=== PATIENT | female | born 1990 | race Caucasian/White ===

== ENCOUNTER 2018-10-26 07:49 | Emergency (ER) | payer OTHER ==
[2018-10-26 07:58] VITALS: BP 100/64; PULSE 89; RESP 20; TEMP 99.2
[2018-10-26] MEDS ORDERED: IBUPROFEN 600 MG TAB PO STA (08:15)
[2018-10-26] MEDS ORDERED: ACETAMINOPHEN TAB 500 MG TAB PO STA (08:15)
--- NOTE | 2018-10-26 08:25 | ED ---
General Adult HPI - General Chief complaint: Upper Respiratory Infection Stated complaint: fever, body aches Time Seen by Provider: 10/26/18 07:50 Source: patient, RN notes reviewed Mode of arrival: ambulatory Limitations: no limitations - History of Present Illness Initial comments: This is a 28-year-old female presents emergency Department with a high fever body aches. Patient states her younger child was diagnosed with influenza A on Thursday. Patient states she has the same symptoms of trauma. Patient states she has a cough but no sputum production. Patient denies any shortness of breath or difficulty breathing. Patient denies any chest pain. Patient denies palpitations. Patient denies lightheadedness dizziness or syncopal episode. Patient denies abdominal pain patient denies nausea vomiting diarrhea. - Related Data Previous Rx's Medication Instructions Recorded Oseltamivir [Tamiflu] 75 mg PO Q12HR #10 cap 10/26/18 Allergies Allergy/AdvReac Type Severity Reaction Status Date / Time No Known Allergies Allergy Verified 10/26/18 08:13 Review of Systems ROS Statement: Those systems with pertinent positive or pertinent negative responses have been documented in the HPI. ROS Other: All systems not noted in ROS Statement are negative. Past Medical History Past Medical History: No Reported History History of Any Multi-Drug Resistant Organisms: None Reported Past Surgical History: Section Past Anesthesia/Blood Transfusion Reactions: No Reported Reaction Past Psychological History: No Psychological Hx Reported Smoking Status: Current every day smoker Past Alcohol Use History: Occasional Past Drug Use History: None Reported General Exam - General Exam Comments Initial Comments: GENERAL: Patient is well-developed and well-nourished. Patient is nontoxic and well- hydrated and is in mild distress. ENT: Neck is soft and supple. No significant lymphadenopathy is noted. Oropharynx is clear. Moist mucous membranes. Neck has full range of motion without eliciting any pain. EYES: The sclera were anicteric and conjunctiva were pink and moist. Extraocular movements were intact and pupils were equal round and reactive to light. Eyelids were unremarkable. PULMONARY: Unlabored respirations. Good breath sounds bilaterally. No audible rales rhonchi or wheezing was noted. CARDIOVASCULAR: There is a regular rate and rhythm without any murmurs gallops or rubs. ABDOMEN: Soft and nontender with normal bowel sounds. SKIN: Skin is clear with no lesions or rashes and otherwise unremarkable. NEUROLOGIC: Patient is alert and oriented x3. Cranial nerves II through XII are grossly intact. Motor and sensory are also intact. Normal speech, volume and content. Symmetrical smile. MUSCULOSKELETAL: Normal extremities with adequate strength and full range of motion. LYMPHATICS: No significant lymphadenopathy is noted PSYCHIATRIC: Normal psychiatric evaluation. Limitations: no limitations Course Vital Signs 10/26/18 07:51 Temperature 99.2 F Pulse Rate 89 Respiratory 20 Rate Blood Pressure 100/64 O2 Sat by Pulse 96 Oximetry Medical Decision Making - Medical Decision Making Patient had influenza a and will be sent home with a Tamiflu prescription. - Lab Data Lab Results 10/26/18 Range/Units 08:15 Influenza Type A RNA Detected H (Not Detectd) Influenza Type B (PCR) Not Detected (Not Detectd) Disposition Clinical Impression: Influenza A Disposition: HOME SELF-CARE Prescriptions: Oseltamivir [Tamiflu] 75 mg PO Q12HR #10 cap Is patient prescribed a controlled substance at d/c from ED?: No Referrals: Camilla Kapadia MD [Primary Care Provider] - 1-2 days Time of Disposition: 08:49
== END 2018-10-26 08:52 | disposition home or self-care (01) ==
LOC: EC 07:49
DX: J10.1 Influenza due to other identified influenza virus with other respiratory manifestations (principal); F17.200 Nicotine dependence, unspecified, uncomplicated
CPT/HCPCS: 87502; 99283

== ENCOUNTER → 2021-11-11 | Outpatient (CLI) | payer OTHER ==
[2021-11-11 14:44] LABS: HCT 42.9 % (37.2-46.3); HGB 13.7 g/dL (12.0-15.0); MCH 29.5 pg (27.0-32.0); MCHC 31.9 g/dL (32.0-37.0); MCV 92.5 fL (80.0-97.0); Mean Platelet Volume 10.1 fL (9.5-12.2); NRBC Per 100 WBC 0 /100 WBCS (0.0-0.0); Platelet Count 251 X 10*3/uL (140-440); RBC 4.64 X 10*6/uL (4.10-5.20); T4, Free (Free Thyroxine) 1.47 ng/dL (0.800-1.800); WBC 6.65 X 10*3/uL (4.50-10.00)
--- NOTE | 2021-11-13 13:38 | MM ---
Reason for exam: clinical finding. Last mammogram was performed 5 years and 11 months ago. History: Family history of breast cancer in maternal cousin at age 30. Taking hormonal contraceptives beginning at age 26. Physical Findings: A clinical breast exam by your physician is recommended on an annual basis and results should be correlated with mammographic findings. MG Diagnostic Mammo w CAD TOVA Bilateral CC and MLO view(s) were taken. Prior study comparison: December 23, 2015, mammogram, performed at [facility]. There are scattered fibroglandular densities. Stable superficial calcifications 7 o'clock left breast is unchanged. Large circumscribed 4-8cm mass left upper outer quadrant is new. ASSESSMENT: Incomplete: need additional imaging evaluation, BI-RAD 0 RECOMMENDATION: Ultrasound of the left breast.
--- NOTE | 2021-11-13 13:41 | USB ---
Reason for exam: additional evaluation requested from abnormal screening. History: Family history of breast cancer in maternal cousin at age 30. Taking hormonal contraceptives beginning at age 26. Physical Findings: A clinical breast exam by your physician is recommended on an annual basis and results should be correlated with mammographic findings. US Breast Limited LT Left limited breast ultrasound including focal area of concern, retroareolar and axilla demonstrates a 4.0 x 2.2 x 4.0cm mildly lobulated, circumscribed, hypoechoic, solid mass with vascularity at 3 o'clock, fibroadenoma versus other mass, biopsy recommended. No axillary nodes. Scanned 12-3 o'clock. ASSESSMENT: Suspicious, BI-RAD 4 RECOMMENDATION: Ultrasound core biopsy of the left breast. Called Dr. Kapadia's office with mammographic findings and has scheduled an appointment for the patient for 11/27/21 at 9:[address] Dixon. Biopsy scheduled for 11/20/21 at 10:30. PRELIMINARY REPORT CALLED AND FAXED TO DR. DIXON ON 11/11/21.
== END | disposition home or self-care (01) ==
LOC: RADMAMWWP 08:49
PROVIDERS: ATTEND Internal Medicine
DX: N63.0 Unspecified lump in unspecified breast (principal); R53.83 Other fatigue; E66.3 Overweight; Z80.3 Family history of malignant neoplasm of breast
CPT/HCPCS: 36415; 77066; 82947; 84439; 84443; 84481; 85027

== ENCOUNTER → 2021-11-20 | Day surgery (SDC) | payer OTHER ==
[2021-11-20 09:51] VITALS: RESP 12
[2021-11-20 11:13] VITALS: BP 122/79; PULSE 86; TEMP 98.4
--- NOTE | 2021-11-20 14:46 | USB ---
EXAMINATION TYPE: US biopsy breast VAD LT DATE OF EXAM: 11/20/2021 CLINICAL HISTORY: R92.8 ABN MAMMO. Abnormal ultrasound. TECHNIQUE: Ultrasound guided core biopsy of left breast with clip placement. COMPARISON: Prior left breast ultrasound November 11, 2021 FINDINGS: The procedure of ultrasound guided core biopsy was explained to the patient. Benefits, alternatives, and risks were discussed. An informed consent was then obtained. The patient was placed in supine positioning for imaging and for the procedure. Preprocedure ultrasound redemonstrates a large oval wider greater than tall heterogeneous hypoechoic solid mass at 3:00 position left breast with some internal vascularity. The overlying skin was prepped and draped in usual sterile fashion. Lidocaine is used as anesthetic into the skin and subcutaneous tissue up to area of concern in the left breast. Under ultrasound guidance, a vacuum assisted biopsy gun device was used to obtain 2 core samples. Following this, a biopsy clip was left in lesion. Postprocedure mammogram was deferred due to patient age and good visualization of clip within the lesion after deployment on ultrasound. I was unaware patient had mammogram November 11. The patient tolerated the procedure well without any immediate complication. The patient was kept in the radiology department for short stay after the procedure and then discharged home in stable condition. IMPRESSION: Successful, uncomplicated ultrasound guided core biopsy of area of concern in the left breast, full pathology results to follow. Low index of suspicion noted at time of procedure. Large fibroadenoma suspected. If pathology reveals diagnosis requiring chemotherapy or immunotherapy treatment prior to surgery I would advise diagnostic mammogram prior to initiating treatment to document clip placement on mammogram along with ultrasound. 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 Recommendation Follow up mammogram of the left breast in 6 months. NARESHD
== END ==
LOC: RADUSWWP 09:22
PROVIDERS: ATTEND Student in an Organized Health Care Education/Training Program
DX: N60.32 Fibrosclerosis of left breast (principal)
CPT/HCPCS: 19083; 88305; A4648

== ENCOUNTER → 2022-06-09 | Outpatient (CLI) | payer OTHER ==
--- NOTE | 2022-06-09 15:13 | MM ---
Reason for Exam: Follow-up at short interval from prior study. Last screening mammogram was performed 7 month(s) ago. Indicated Problems: Pain of the left side (Focal) for 7 Month(s) : lt breast pain at bx site x 7 months. Patient History: Menarche at age 9. First Full-Term at age 16. Currently using Hormonal Contraceptives, starting at age 26. 11/20/2021, Benign Core Biopsy on the left side. Maternal cousin had breast cancer, age 30. Prior Study Comparison: 12/23/2015 Screening Mammogram, [facility]. 11/11/2021 Bilateral Diagnostic Mammogram, [facility]. Tissue Density: Left: There are scattered fibroglandular densities. Findings: Analyzed By CAD. Increased size of large circumscribed 7.4 x 5.1 cm mass in upper outer quadrant of the left breast with biopsy clip demonstrated, previously measured 4.8 cm. This is at the patient's site of pain. No new worrisome cluster microcalcifications. Overall Assessment: Incomplete: need additional imaging evaluation, BI-RAD 0 Management: Diagnostic Breast Ultrasound of the left breast. A clinical breast exam by your physician is recommended on an annual basis and results should be correlated with mammographic findings. This exam should not preclude additional follow-up of suspicious palpable abnormalities. Results were given to the patient verbally at the time of exam. Electronically signed and approved by: Ronny Peralta D.O.
--- NOTE | 2022-06-09 15:36 | USB ---
Reason for Exam: Follow-up at short interval from prior study. Patient History: Menarche at age 9. First Full-Term at age 16. Currently using Hormonal Contraceptives, starting at age 26. 11/20/2021, Benign Core Biopsy on the left side. Maternal cousin had breast cancer, age 30. Technique: Method: Targeted. Prior Study Comparison: 12/23/2015 Screening Mammogram, [facility]. 11/11/2021 Bilateral Diagnostic Mammogram, [facility]. Findings: The lower outer quadrant of the left breast, the axilla of the left breast and the retroareolar of the left breast were scanned. Limited ultrasound of the left breast the patient's region of palpable abnormality from 2:00 to 4:00 was obtained. Additional imaging of the left nipple and extra toe was obtained. Increase in size with similar morphology of large left breast mass at 3:00 8 cm from the nipple measuring grossly 6.4 x 3.2 x 6.0 cm. No internal color flow visualized. This has been previous the biopsied with pathology results demonstrated fibrocystic changes including stromal fibrosis and pseudoangiomatous hyperplasia. Overall Assessment: Benign, BI-RAD 2 Management: Surgical Consultation of the left breast. A clinical breast exam by your physician is recommended on an annual basis and results should be correlated with mammographic findings. This exam should not preclude additional follow-up of suspicious palpable abnormalities. ??Results were given to the patient verbally at the time of exam. Electronically signed and approved by: Ronny Peralta D.O.
== END | disposition home or self-care (01) ==
LOC: RADMAMWWP 14:20
PROVIDERS: ATTEND Internal Medicine
DX: R92.8 Other abnormal and inconclusive findings on diagnostic imaging of breast (principal); Z80.3 Family history of malignant neoplasm of breast
CPT/HCPCS: 77065

== ENCOUNTER → 2023-02-12 | Outpatient (CLI) | payer OTHER ==
--- NOTE | 2023-02-12 14:50 | MM ---
Reason for Exam: Clinical finding. Last mammogram was performed 1 year(s) and 3 month(s) ago. Indicated Problems: Lump or thickening of the left side (size 3) for 6 Week(s). Patient History: Menarche at age 9. First Full-Term at age 16. Patient has history of breast feeding. Currently using Hormonal Contraceptives, starting at age 26. 06/26/2022, Benign Excisional Biopsy on the left side. 11/20/2021, Benign Core Biopsy on the left side. Maternal cousin had breast cancer, age 30. Last menstrual period: 02/05/2023 Prior Study Comparison: 12/23/2015 Screening Mammogram, [facility]. 11/11/2021 Bilateral Diagnostic Mammogram, [facility]. 06/09/2022 Left MG diagnostic mammo LT w CAD, [facility]. Tissue Density: The breast tissue is heterogeneously dense. This may lower the sensitivity of mammography. Findings: Analyzed By CAD. Interval excision of the patient's previous large upper outer quadrant mass. Asymmetric density medial posterior right breast remains unchanged. New 5 mm isodense circumscribed nodularity at the 1:00 position left breast that. Overlying palpable marker. Further ultrasound evaluation recommended. Otherwise, no significant change. Overall Assessment: Incomplete: need additional imaging evaluation, BI-RAD 0 Management: Diagnostic Breast Ultrasound of the left breast. Electronically signed and approved by: Erik Qureshi M.D. Radiologist
--- NOTE | 2023-02-12 15:26 | USB ---
Reason for Exam: Clinical finding. Patient History: Menarche at age 9. First Full-Term at age 16. Patient has history of breast feeding. Currently using Hormonal Contraceptives, starting at age 26. 06/26/2022, Benign Excisional Biopsy on the left side. 11/20/2021, Benign Core Biopsy on the left side. Maternal cousin had breast cancer, age 30. Technique: Method: Targeted. Prior Study Comparison: 12/23/2015 Screening Mammogram, [facility]. 11/11/2021 Bilateral Diagnostic Mammogram, [facility]. 06/09/2022 Left MG diagnostic mammo LT w CAD, [facility]. 06/09/2022 Left US breast limited LT, [facility]. Findings: The area of palpable concern of the left breast, the axilla of the left breast and the retroareolar of the left breast were scanned. Targeted ultrasound to the patient's palpable site 11:00. Additional scanning of the subareolar region and axilla. At 11:00, 5 cm from the nipple, there is a tiny benign 5 mm cyst, probable mammographic correlate. Precautionary six-month follow-up mammogram recommended. Overall Assessment: Probably benign, BI-RAD 3 Management: Diagnostic Mammogram of the left breast in 6 months. Further clinical management of any suspicious palpable abnormalities. Ultrasound shows a probable tiny 5 mm cyst corresponding to the patient's palpable site. Patient should continue monthly self breast exams. Results were given to the patient verbally at the time of exam. Electronically signed and approved by: Erik Qureshi M.D. Radiologist
== END | disposition home or self-care (01) ==
LOC: RADMAMWWP 14:05
PROVIDERS: ATTEND Internal Medicine
DX: N63.21 Unspecified lump in the left breast, upper outer quadrant (principal); Z80.3 Family history of malignant neoplasm of breast
CPT/HCPCS: 77066; 76642; G0279; 77062

== ENCOUNTER → 2023-08-14 | Outpatient (CLI) | payer OTHER ==
--- NOTE | 2023-08-14 11:46 | USB ---
Reason for Exam: Follow-up at short interval from prior study. Patient History: Menarche at age 9. First Full-Term at age 16. Patient has history of breast feeding. Currently using Hormonal Contraceptives, starting at age 26. 06/26/2022, Benign Excisional Biopsy on the left side. 11/20/2021, Benign Core Biopsy on the left side. Maternal cousin had breast cancer, age 30. Technique: Method: Targeted. Prior Study Comparison: 11/11/2021 Bilateral Diagnostic Mammogram, [facility]. 06/09/2022 Left MG diagnostic mammo LT w CAD, [facility]. 02/12/2023 Bilateral MG 3D diag mammo w/cad TOVA, [facility]. Findings: The upper section of the breast of the left breast, the axilla of the left breast and the retroareolar of the left breast were scanned. Targeted ultrasound superior half of the left breast 9:00 to 3:00 including scanning of the subareolar region and axilla. At the 11:00 position, 5 cm from the nipple, there is a small 5 mm benign cyst. At the 2:00 position, 7 cm from the nipple, underlying the patient's surgical scar, there is a vague hypoechoic area. 1.0 cm, likely scarring. No other solid or cystic lesion or axillary lymphadenopathy.. Overall Assessment: Benign, BI-RAD 2 Management: Screening Mammogram of both breasts in 1 year. A clinical breast exam by your physician is recommended on an annual basis and results should be correlated with mammographic findings. This exam should not preclude additional follow-up of suspicious palpable abnormalities. Results were given to the patient verbally at the time of exam. Electronically signed and approved by: Erik Qureshi M.D. Radiologist
--- NOTE | 2023-09-01 08:20 | MM ---
Reason for Exam: Follow-up at short interval from prior study. Last screening mammogram was performed 6 month(s) ago. Patient History: Menarche at age 9. First Full-Term at age 16. Patient has history of breast feeding. Currently using Hormonal Contraceptives, starting at age 26. 06/26/2022, Benign Excisional Biopsy on the left side. 11/20/2021, Benign Core Biopsy on the left side. Maternal cousin had breast cancer, age 30. Last menstrual period: 07/24/2023 Prior Study Comparison: 11/11/2021 Bilateral Diagnostic Mammogram, [facility]. 11/11/2021 Left Diagnostic Ultrasound, [facility]. 06/09/2022 Left MG diagnostic mammo LT w CAD, [facility]. 06/09/2022 Left US breast limited LT, [facility]. 02/12/2023 Bilateral MG 3D diag mammo w/cad TOVA, [facility]. 02/12/2023 Left US breast limited LT, [facility]. Tissue Density: The breast tissue is heterogeneously dense. This may lower the sensitivity of mammography. Findings: Analyzed By CAD. There is an asymmetric density remain unchanged. No significant change from prior exams. Overall Assessment: Incomplete: need additional imaging evaluation, BI-RAD 0 Management: Diagnostic Breast Ultrasound of the left breast. Electronically signed and approved by: Erik Qureshi M.D. Radiologist
== END | disposition home or self-care (01) ==
LOC: RADMAMWWP 10:15
PROVIDERS: ATTEND Internal Medicine
DX: R92.333 Mammographic heterogeneous density, bilateral breasts (principal); Z80.3 Family history of malignant neoplasm of breast
CPT/HCPCS: 77066; 76642; G0279; 77062

== ENCOUNTER 2024-06-07 12:36 | Emergency (ER) | payer OTHER ==
[2024-06-07 12:41] VITALS: RESP 18
--- NOTE | 2024-06-07 13:05 | ED ---
Dizziness HPI - General Chief Complaint: Dizziness Stated Complaint: Dizziness Time Seen by Provider: 06/07/24 12:46 Source: patient, RN notes reviewed Mode of arrival: ambulatory Limitations: no limitations - History of Present Illness Initial Comments: This is a 34-year-old female who presents to the emergency department for dizziness. States that she was at work and started to feel dizzy. This occurred about 45 minutes prior to arrival. Describes this as a room spinning sensation that is induced by positional changes. States that sitting still she feels fine, however if she tries to move her head or sit up, the dizziness returns. This is causing her to feel nauseous as well. Denies any headaches or visual changes. Denies any chest pain or shortness of breath. She has no history of similar symptoms in the past. Also denies any history of vertigo. MD Complaint: dizziness - Related Data Previous Rx's Medication Instructions Recorded Meclizine HCl [Dramamine] 25 mg PO QID PRN #30 tab 06/07/24 Metoclopramide [Reglan] 10 mg PO Q6H PRN #30 tab 06/07/24 Ondansetron Odt [Zofran Odt] 4 mg PO Q8HR PRN #20 tab 06/07/24 Allergies Allergy/AdvReac Type Severity Reaction Status Date / Time No Known Allergies Allergy Verified 06/07/24 12:41 Review of Systems ROS Statement: Those systems with pertinent positive or pertinent negative responses have been documented in the HPI. ROS Other: All systems not noted in ROS Statement are negative. Past Medical History Past Medical History: No Reported History History of Any Multi-Drug Resistant Organisms: None Reported Past Surgical History: Section Additional Past Surgical History / Comment(s): lumpectomy Past Anesthesia/Blood Transfusion Reactions: No Reported Reaction Past Psychological History: No Psychological Hx Reported Smoking Status: Current every day smoker Past Alcohol Use History: Occasional Past Drug Use History: None Reported - Past Family History Father Family Medical History: Cancer Additional Family Medical History / Comment(s): testicular General Exam Limitations: no limitations General appearance: alert, in no apparent distress Head exam: Present: atraumatic, normocephalic, normal inspection Eye exam: Present: normal appearance, PERRL, EOMI. Absent: scleral icterus, conjunctival injection, periorbital swelling Respiratory exam: Present: normal lung sounds bilaterally. Absent: respiratory distress, wheezes, rales, rhonchi, stridor Cardiovascular Exam: Present: regular rate, normal rhythm, normal heart sounds. Absent: systolic murmur, diastolic murmur, rubs, gallop, clicks Neurological exam: Present: alert, oriented X3, CN II-XII intact Psychiatric exam: Present: normal affect, normal mood Skin exam: Present: warm, dry, intact, normal color. Absent: rash Course Vital Signs 06/07/24 06/07/24 12:38 14:53 Temperature 97.4 F L 97.9 F Pulse Rate 94 58 L Respiratory 18 18 Rate Blood Pressure 135/75 107/70 O2 Sat by Pulse 97 100 Oximetry Medical Decision Making - Medical Decision Making This is a 34 year old female who presents to the emergency department for dizziness. Was pt. sent in by a medical professional or institution? @ -No Did you speak to anyone other than the patient for history? @ -No Did you review nursing and triage notes? @ -Yes, and I agree, it is accurate with regards to the patient's symptoms. Were old charts reviewed? @ -No Differential Diagnosis? @ -Differential Dizziness: Benign paroxysmal positional Vertigo, Meniere's disease, otitis media, acoustic neuroma, vertebrobasilar insufficiency, cerebellar stroke, encephalitis, hypovolemic, arrhythmia, coronary artery syndrome, anemia, this is not meant to be an all-inclusive list EKG interpreted by me (3pts min.)? @ -EKG interpreted by me demonstrating the following: Sinus bradycardia. Ventricular rate 56 bpm, SC interval 165 ms, QRS duration 94 ms, QTc 419 ms. X-rays interpreted by me (1pt min.)? @ -Not obtained CT interpreted by me (1pt min.)? @ -Not obtained U/S interpreted by me (1pt. min.)? @ -Not obtained What testing was considered but not performed? (CT, X-rays, U/S, labs)? Why? @ -None What meds were considered but not given? Why? @ -None Did you discuss the management of the patient with other professionals? @ -No Did you reconcile home meds? @ -No Was smoking cessation discussed for >3mins.? @ -I discussed smoking cessation for greater than 3 minutes. The risk of smoking were discussed with the patient including but not limited to risks of cancer, stroke, coronary artery disease and COPD. Also discussed with patient were multiple methods of quitting smoking. Lastly we discussed the financial co st of smoking. Was critical care preformed (if so, how long)? @ -No Were there social determinants of health that impacted care today? How? (Homelessness, low income, unemployed, alcoholism, drug addiction, transportation, low edu. Level, literacy, decrease access to med. care, half-way, rehab)? @ -No Was there de-escalation of care discussed even if they declined? (Discuss DNR or withdrawal of care, Hospice)? @ -No What co-morbidities impacted this encounter? (DM, HTN, Smoking, COPD, CAD, Cancer, CVA, Hep., AIDS, mental health diagnosis, sleep apnea, morbid obesity)? @ -Smoking Was patient admitted / discharged? @ -Discharged. Lab work unremarkable. HINTS exam negative. Patient treated with IV fluids, meclizine, reglan, and a scopolamine patch. She had significant relief in symptoms afterwards. Symptoms likely related to vertigo given the description of her symptoms with negative HINTS exam. Prescription for meclizine, Reglan, and Zofran provided. Also discussed the half somersault maneuver with Dr. Alexandra Collier as an additional treatment option. Advised follow-up with her PCP for reevaluation. Strict return parameters discussed. Patient discharged home in stable condition. Case discussed with ED attending Dr. Rivas. Return precautions reviewed in depth, the patient is instructed to return to the emergency department with any new, worsening, or concerning symptoms. Patient verbalized understanding. Undiagnosed new problem with uncertain prognosis? @ -None Drug Therapy requiring intensive monitoring for toxicity (Heparin, Nitro, Insulin, Cardizem)? @ -None Were any procedures done? @ -None Diagnosis/symptom? @ -BPPV Acute, or Chronic, or Acute on Chronic? @ -Acute Uncomplicated (without systemic symptoms) or Complicated (systemic symptoms)? @ -Uncomplicated Side effects of treatment? @ -None Exacerbation, Progression, or Severe Exacerbation] @ -Not applicable Poses a threat to life or bodily function? @ -No - Lab Data Result diagrams: 06/07/24 13:11 06/07/24 13:11 Lab Results 06/07/24 06/07/24 06/07/24 Range/Units 13:11 13:11 13:11 WBC 7.2 (3.8-10.6) k/uL RBC 4.89 (3.80-5.40) m/uL Hgb 14.9 (11.4-16.0) gm/dL Hct 45.5 (34.0-46.0) % MCV 93.1 (80.0-100.0) fL MCH 30.6 (25.0-35.0) pg MCHC 32.8 (31.0-37.0) g/dL RDW 12.0 (11.5-15.5) % Plt Count 256 (150-450) k/uL MPV 7.3 Neutrophils % 67 % Lymphocytes % 24 % Monocytes % 5 % Eosinophils % 2 % Basophils % 1 % Neutrophils # 4.8 (1.3-7.7) k/uL Lymphocytes # 1.7 (1.0-4.8) k/uL Monocytes # 0.4 (0-1.0) k/uL Eosinophils # 0.2 (0-0.7) k/uL Basophils # 0.0 (0-0.2) k/uL Sodium 138 (137-145) mmol/L Potassium 4.4 (3.5-5.1) mmol/L Chloride 103 (98-107) mmol/L Carbon Dioxide 28 (22-30) mmol/L Anion Gap 7 mmol/L BUN 9 (7-17) mg/dL Creatinine 0.54 (0.52-1.04) mg/dL Est GFR (CKD-EPI)AfAm >90 (>60 ml/min/1.73 sqM) Est GFR (CKD-EPI)NonAf >90 (>60 ml/min/1.73 sqM) Glucose 86 (74-99) mg/dL Calcium 9.8 (8.4-10.2) mg/dL Total Bilirubin 1.1 (0.2-1.3) mg/dL AST 25 (14-36) U/L ALT 17 (4-34) U/L Alkaline Phosphatase 71 (38-126) U/L Troponin I (0.000-0.034) ng/mL Total Protein 6.9 (6.3-8.2) g/dL Albumin 4.3 (3.5-5.0) g/dL Urine Color Yellow Urine Appearance Cloudy H (Clear) Urine pH 5.5 (5.0-8.0) Ur Specific [place] 1.026 (1.001-1.035) Urine Protein Trace H (Negative) Urine Glucose (UA) Negative (Negative) Urine Ketones 1+ H (Negative) Urine Blood Negative (Negative) Urine Nitrite Negative (Negative) Urine Bilirubin Negative (Negative) Urine Urobilinogen <2.0 (<2.0) mg/dL Ur Leukocyte Esterase Negative (Negative) Urine RBC 3 (0-5) /hpf Urine WBC 2 (0-5) /hpf Ur Squamous Epith Cells 8 H (0-4) /hpf Urine Bacteria Rare H (None) /hpf Urine Mucus Many H (None) /hpf Urine HCG, Qual (Not Detectd) 06/07/24 06/07/24 Range/Units 13:11 13:11 WBC (3.8-10.6) k/uL RBC (3.80-5.40) m/uL Hgb (11.4-16.0) gm/dL Hct (34.0-46.0) % MCV (80.0-100.0) fL MCH (25.0-35.0) pg MCHC (31.0-37.0) g/dL RDW (11.5-15.5) % Plt Count (150-450) k/uL MPV Neutrophils % % Lymphocytes % % Monocytes % % Eosinophils % % Basophils % % Neutrophils # (1.3-7.7) k/uL Lymphocytes # (1.0-4.8) k/uL Monocytes # (0-1.0) k/uL Eosinophils # (0-0.7) k/uL Basophils # (0-0.2) k/uL Sodium (137-145) mmol/L Potassium (3.5-5.1) mmol/L Chloride (98-107) mmol/L Carbon Dioxide (22-30) mmol/L Anion Gap mmol/L BUN (7-17) mg/dL Creatinine (0.52-1.04) mg/dL Est GFR (CKD-EPI)AfAm (>60 ml/min/1.73 sqM) Est GFR (CKD-EPI)NonAf (>60 ml/min/1.73 sqM) Glucose (74-99) mg/dL Calcium (8.4-10.2) mg/dL Total Bilirubin (0.2-1.3) mg/dL AST (14-36) U/L ALT (4-34) U/L Alkaline Phosphatase (38-126) U/L Troponin I <0.012 (0.000-0.034) ng/mL Total Protein (6.3-8.2) g/dL Albumin (3.5-5.0) g/dL Urine Color Urine Appearance (Clear) Urine pH (5.0-8.0) Ur Specific [place] (1.001-1.035) Urine Protein (Negative) Urine Glucose (UA) (Negative) Urine Ketones (Negative) Urine Blood (Negative) Urine Nitrite (Negative) Urine Bilirubin (Negative) Urine Urobilinogen (<2.0) mg/dL Ur Leukocyte Esterase (Negative) Urine RBC (0-5) /hpf Urine WBC (0-5) /hpf Ur Squamous Epith Cells (0-4) /hpf Urine Bacteria (None) /hpf Urine Mucus (None) /hpf Urine HCG, Qual Not Detected (Not Detectd) - Radiology Data Radiology results: report reviewed, image reviewed Disposition Clinical Impression: BPPV (benign paroxysmal positional vertigo), Nicotine dependence Disposition: HOME SELF-CARE Instructions (If sedation given, give patient instructions): Vertigo (ED), Shaquille ign Paroxysmal Positional Vertigo (ED), Dizziness (ED) Additional Instructions: Return to the emergency department with any new, worsening, or concerning symptoms. You can try taking the meclizine up to 4 times daily for feelings of vertigo or dizziness. The Reglan can be taken up to every 6 hours. This is for both vertigo as well as nausea and vomiting. The Zofran can be taken up to every 8 hours and this is just for nausea and vomiting. You can leave the scopolamine patch on for 72 hours. Look up the half somersault maneuver by Dr. Alexandra Collier online, which is another treatment option. Follow up with your primary care provider in 1-2 days. Prescriptions: Meclizine HCl [Dramamine] 25 mg PO QID PRN #30 tab PRN Reason: Vertigo Metoclopramide [Reglan] 10 mg PO Q6H PRN #30 tab PRN Reason: Nausea And Vomiting Ondansetron Odt [Zofran Odt] 4 mg PO Q8HR PRN #20 tab PRN Reason: Nausea And Vomiting Is patient prescribed a controlled substance at d/c from ED?: No Referrals: Barrett Tucker MD [Primary Care Provider] - 1-2 days Time of Disposition: 14:40
[2024-06-07] MEDS: SODIUM CHLORIDE 0.9% 1,000 ML IV STA (13:18)
[2024-06-07] MEDS: ONDANSETRON 4 MG/2 ML VIAL IVP STA (13:18)
[2024-06-07] MEDS: METOCLOPRAMIDE 5 MG/ML 2 ML VIAL IVP STA (13:20)
[2024-06-07] MEDS: MECLIZINE 12.5 MG TAB PO STA (13:21)
[2024-06-07] MEDS: SCOPOLAMINE 1 MG/72 HR PATCH TRANSDERM STA (13:28)
[2024-06-07 13:34] LABS: Basophils % (A) 1 %; Eosinophils # (A) 0.2 k/uL (0-0.7); Eosinophils % (A) 2 %; HCT 45.5 % (34.0-46.0); HGB 14.9 gm/dL (11.4-16.0); Lymphocytes # (A) 1.7 k/uL (1.0-4.8); Lymphocytes % (A) 24 %; MCH 30.6 pg (25.0-35.0); MCHC 32.8 g/dL (31.0-37.0); MCV 93.1 fL (80.0-100.0); Mean Platelet Volume 7.3; Monocytes # (A) 0.4 k/uL (0-1.0); Monocytes % (A) 5 %; Neutrophils # (A) 4.8 k/uL (1.3-7.7); Neutrophils % (A) 67 %; Platelet Count 256 k/uL (150-450); RBC 4.89 m/uL (3.80-5.40); WBC 7.2 k/uL (3.8-10.6)
[2024-06-07 13:45] LABS: ALT 17 U/L (4-34); AST 25 U/L (14-36); African American GFR (CKD) >90 (>60 ml/min/1.73 sqM); Albumin 4.3 g/dL (3.5-5.0); Alkaline Phosphatase 71 U/L (38-126); Anion Gap 7 mmol/L; Blood Urea Nitrogen 9 mg/dL (7-17); Calcium 9.8 mg/dL (8.4-10.2); Carbon Dioxide 28 mmol/L (22-30); Chloride 103 mmol/L (98-107); Glucose 86 mg/dL (74-99); Non-African American GFR(CKD) >90 (>60 ml/min/1.73 sqM); Potassium 4.4 mmol/L (3.5-5.1); Sodium 138 mmol/L (137-145); Total Bilirubin 1.1 mg/dL (0.2-1.3); Total Protein 6.9 g/dL (6.3-8.2)
[2024-06-07 14:16] LABS: Appearance,Urine Cloudy (Clear); Bacteria,Urine Rare /hpf; Bilirubin,Urine Negative (Negative); Blood,Urine Negative (Negative); Color,Urine Yellow; Glucose,Urine (UA) Negative (Negative); Ketones,Urine 1+ (Negative); Leukocyte Esterase,Urine Negative (Negative); Mucus,Urine Many /hpf; Nitrite,Urine Negative (Negative); PH, Urine 5.5 (5.0-8.0); Protein,Urine Trace (Negative); RBC,Urine 3 /hpf (0-5); Specific Gravity,Urine 1.026 (1.001-1.035); Squamous Epithelial Cell,Urine 8 /hpf (0-4); Urobilinogen,Urine <2.0 mg/dL (<2.0); WBC,Urine 2 /hpf (0-5)
[2024-06-07 14:57] VITALS: BP 107/70; PULSE 58; TEMP 97.9
== END 2024-06-07 14:59 | disposition home or self-care (01) ==
LOC: EC 12:36
CPT/HCPCS: 36415; 80053; 81001; 81025; 84484; 85025; 93005; 96361; 96374; 96375; 99284